=== PATIENT | male | born 1990 | race Caucasian/White ===

== ENCOUNTER 2016-09-28 10:00 | Emergency (ER) | payer BC ==
[~2016-09-28] VITALS: Ht 170.2 cm; Wt 84.4 kg
[2016-09-28 12:52] VITALS: BP 139/86
== END 2016-09-28 12:52 | disposition home or self-care (01) ==
LOC: ED 10:00
DX: S69.91XA Unspecified injury of right wrist, hand and finger(s), initial encounter (principal); X58.XXXA Exposure to other specified factors, initial encounter; Y93.89 Activity, other specified; Y99.8 Other external cause status; Y92.89 Other specified places as the place of occurrence of the external cause
CPT/HCPCS: A4570; Q0092